=== PATIENT | female | born 1960 | race Caucasian/White ===

== ENCOUNTER 2019-04-21 17:51 | Emergency (ER) | payer BC, OTHER ==
--- NOTE | 2019-04-21 18:01 | PDOC ---
History of Present Illness - General Chief Complaint: Allergic Reaction Stated Complaint: ALLERGIC REACTION Time Seen by Provider: 04/21/19 17:56 History Source: Patient Exam Limitations: No Limitations - History of Present Illness Initial Comments: 04/21/19 17:57 58 year old female with PMH multiple UTIs, multiple antibiotic allergies presented to ED for rash to face since yesterday. Pt reported she started taking Keflex Thursday for a UTI, and she has never taken this medication prior. Pt admitted to tingling sensation in her throat, with facial redness and swelling. Pt denied nausea/vomiting, abdominal pain, chest pain, shortness of breath. Pt reported she took Benadryl 20 mg PO at 0700, but her symptoms have been worsening. Pt reported she started taking Steroids for her chronic back pain x7 days ago, without relief of symptoms. Pt was seen and treated at urgent care 03/21/2019 for similar symptoms, diagnosed with UTI, treated with Macrobid - pt reported her symptoms improved, but she still felt her bladder was not emptying completely and had suprapubic fullness. Pt denied leakage of urine from bladder. Pt reported her symptoms of urinary urgency and frequency have been improving on the Keflex. Past History - Past Medical History Allergies/Adverse Reactions: Allergies Allergy/AdvReac Type Severity Reaction Status Date / Time clindamycin Allergy Severe Swelling,DIFFICULTY Verified 04/21/19 17:52 BREATHING codeine Allergy Severe SEVERE Verified 04/21/19 17:52 ABDOMINAL PAIN ciprofloxacin [From Cipro] Allergy Intermediate Rash Verified 04/21/19 17:52 ciprofloxacin HCl Allergy Intermediate Rash Verified 04/21/19 17:52 [From Cipro] clarithromycin [From Biaxin] Allergy Intermediate Rash Verified 04/21/19 17:52 Penicillins Allergy Intermediate Rash Verified 04/21/19 17:52 Sulfa (Sulfonamide Allergy Intermediate Rash Verified 04/21/19 17:52 Antibiotics) cephalexin [From Keflex] Allergy Verified 04/21/19 17:52 Home Medications: Ambulatory Orders Oxycodone HCl/Acetaminophen [Percocet 10-325 mg Tablet] 1 each PO ASDIR Anemia: Yes (TREATED WITH IRON IN THE PAST) Asthma: No Cancer: No Cardiac Disorders: No CVA: No COPD: No CHF: No Dementia: No Diabetes: No GI Disorders: Yes (IBS) Disorders: No HTN: No Hypercholesterolemia: Yes (BORDERLINE) Liver Disease: No Seizures: No Thyroid Disease: No - Surgical History Abdominal Surgery: Yes (ABDOMINALPLASTY) Appendectomy: Yes (RUPTURED-1974) Cardiac Surgery: No Cholecystectomy: Yes (LAP CHOLEY-2007) Lung Surgery: No Neurologic Surgery: No Orthopedic Surgery: No - Immunization History Td Vaccination: No - Suicide/Smoking/Psychosocial Hx Smoking Status: No Smoking History: Never smoked Number of Cigarettes Smoked Daily: 0 Hx Alcohol Use: Yes (OCCASIONALLY) Drug/Substance Use Hx: No Substance Use Type: Alcohol Hx Substance Use Treatment: No Review of Systems - Review of Systems Able to Perform ROS?: Yes Comments:: 04/21/19 17:59 General: denied fever, chills, generalized weakness. HEENT: admitted to tingling sensation in throat. denied rhinorrhea, ear pain. Heart: denied chest pain, palpitations, syncope, diaphoresis. Respiratory: denied shortness of breath, cough, sputum production, hemoptysis. Abdomen: denied abdominal pain, nausea, vomiting, diarrhea, constipation, blood in stool. : admitted to dysuria, increased urinary frequency. denied hematuria, urinary incontinence. Back: admitted to back pain. Musculoskeletal: denied joint pain, muscle pain, joint swelling. Neurological: denied headache, dizziness, numbness, tingling, weakness. Skin: admitted to rash. denied laceration, abrasion. *Physical Exam - Physical Exam Comments: 04/21/19 18:00 Constitutional: Well-nourished, Well-developed, appearing stated age. HEENT: head is normocephalic, atraumatic. EOMI. PERRLA. erythema to bilateral face. Neck: supple. Full ROM. Heart: regular rhythm. no murmurs, rubs or gallops. Lungs: clear to auscultation bilaterally. no crackles, rhonchi or wheezing. no stridor. Abdomen: soft. tenderness to suprapubic area. normal bowel sounds. no rebound, guarding, masses. Back: no CVA tenderness bilaterally. no rash to back. Extremities: peripheral pulses intact. no lower extremity edema. Neurological: CN 2-12 grossly intact. moves all four extremities. Psych: awake, alert, oriented x3. follows commands. answers questions appropriately. Skin: diffuse erythematous blanching rash to bilateral upper extremities, lateral neck. ED Treatment Course - LABORATORY CBC & Chemistry Diagram: 04/21/19 19:11 04/21/19 19:11 Medical Decision Making - Medical Decision Making 04/21/19 18:00 58 year old female with above PMH presented to ED for rash to face after starting Keflex for UTI. Suspect underlying bladder motility issue may be causing recurrent UTIs. Pt has not had outpatient workup for bladder sensations. Rash consistent with mild allergic reaction without GI or respiratory involvement. Last dose of Benadryl was 0700 today. Initial Vital Signs Temp Pulse Resp BP Pulse Ox 98.2 F 75 16 146/92 98 04/21/19 17:51 04/21/19 17:51 04/21/19 17:51 04/21/19 17:51 04/21/19 17:51 Afebrile. No tachycardia. No tachypnea. Mild hypertension. No hypoxia on room air. Labs ordered: none Imaging ordered: none Medications ordered: benadryl 25 mg IV once, normal saline bolus 1000 cc once, tylenol IV [facility] called at - reported pt last seen on Thursday for UTI, was prescribed Keflex. Will fax sensitivity report. Pt was also seen 03/21 for UTI, prescribed Macrobid. 04/21/19 18:52 Urine culture from 04/17/19 collection date reported sensitivity to Macrobid, Ceftriaxone, Levaquin, Augmentin. 04/21/19 19:30 Pt reported shortness of breath, mild wheezing on auscultation. Medications ordered: duonebx3 04/21/19 19:37 CBC WBC 13.4 K/mm3 (4.0-10.8) H 04/21/19 19:11 RBC 4.50 M/mm3 (3.60-5.2) 04/21/19 19:11 Hgb 14.2 GM/dl (10.7-15.3) 04/21/19 19:11 Hct 40.6 % (32.4-45.2) 04/21/19 19:11 MCV 90.1 fl (80-96) 04/21/19 19:11 MCH 31.5 pg (25.7-33.7) 04/21/19 19:11 MCHC 34.9 g/dl (32.0-36.0) 04/21/19 19:11 RDW 11.6 % (11.6-15.6) 04/21/19 19:11 Plt Count 350 K/MM3 (134-434) 04/21/19 19:11 MPV 8.4 fl (7.5-11.1) 04/21/19 19:11 Absolute Neuts (auto) 11.1 K/mm3 04/21/19 19:11 Neutrophils % No Result Required. 04/21/19 19:11 Lymphocytes % No Result Required. 04/21/19 19:11 Leukocytosis with no left shift. Pt is on steroids. Urine Test Results Urine Color Yellow 04/21/19 19:11 Urine Appearance Clear 04/21/19 19:11 Urine pH 5.5 (4.5-8) 04/21/19 19:11 Urine Protein Negative (NEGATIVE) 04/21/19 19:11 Urine Glucose (UA) Negative (NEGATIVE) 04/21/19 19:11 Urine Ketones Negative (NEGATIVE) 04/21/19 19:11 Urine Blood Negative (NEGATIVE) 04/21/19 19:11 Urine Nitrite Negative (NEGATIVE) 04/21/19 19:11 Urine Bilirubin Negative (NEGATIVE) 04/21/19 19:11 Ur Leukocyte Esterase Negative (NEGATIVE) 04/21/19 19:11 Negative for UTI, but patient has been on antibiotics x4 days. No blood in urine. 04/21/19 19:50 CMP Sodium 138 mmol/L (136-145) 04/21/19 19:11 Potassium 4.6 mmol/L (3.5-5.1) 04/21/19 19:11 Chloride 102 mmol/L (98-107) 04/21/19 19:11 Carbon Dioxide 28 mmol/L (21-32) 04/21/19 19:11 Anion Gap 8 MMOL/L (8-16) 04/21/19 19:11 BUN 24.0 mg/dl (7-18) H 04/21/19 19:11 Creatinine 0.9 mg/dl (0.55-1.3) 04/21/19 19:11 Est GFR (CKD-EPI)AfAm 80.55 04/21/19 19:11 Est GFR (CKD-EPI)NonAf 69.50 04/21/19 19:11 Random Glucose 124 mg/dl (74-106) H 04/21/19 19:11 Calcium 9.8 mg/dl (8.5-10) 04/21/19 19:11 Total Bilirubin 0.8 mg/dl (0.2-1) 04/21/19 19:11 AST 37 U/L (15-37) 04/21/19 19:11 ALT 51 U/L (13-61) 04/21/19 19:11 Alkaline Phosphatase 71 U/L (45-117) 04/21/19 19:11 Total Protein 8.2 g/dl (6.4-8.2) 04/21/19 19:11 Albumin 4.6 g/dl (3.4-5.0) 04/21/19 19:11 No electrolyte abnormalities. No DANNA. BUN/Cr >20 - pt is dehydrated. No transaminitis. 04/21/19 20:52 Pt reported mild itching sensation, reported she would like to go home, but would prefer another dose of benadryl prior to discharge. Medications ordered: benadryl 12.5 mg IV once UTI symptoms improving on Keflex, suspicion for Pyelo low. No CVA tenderness, no fever, no systemic symptoms. Pt has taken 4 days of Keflex with improving symptoms, will discharge with no antibiotic prescription and with instruction to stop Keflex. Pt informed of results and plan for care, with which she agrees. Pt informed of return precautions - including increasing back/flank pain, fever , vomiting. Pt given referral for PCP and Urology. *DC/Admit/Observation/Transfer Diagnosis at time of Disposition: Urinary tract infection, Suprapubic fullness, Back pain - Discharge Dispostion Disposition: HOME Condition at time of disposition: Stable - Referrals Referrals: [facility] [place] [Provider Group] Silvino Hurt MD [Staff Physician] - Jae Roland MD [Staff Physician] - Andre Grover MD [Staff Physician] - - Patient Instructions Printed Discharge Instructions: DI for Urinary Tract Infection (UTI) Additional Instructions: You were seen today for an allergic reaction. Your lab work showed a slightly high white blood cell count, which could be due to the steroids you are taken. Have a primary care doctor repeat this testing. Continue taking the Steroids you were prescribed. STOP taking the Keflex immediately. Take Tylenol over the counter for pain, take as advised on label. Drink lots of fluids to stay hydrated - like water/gatorade. Return to the Emergency Department for fever, chills, vomiting, difficulty breathing, chest pain, shortness of breath, choking sensation, dizziness, lightheadedness or any other new, worsening or concerning symptoms. Follow up with a primary care doctor within 3 days. Your care is not complete until you follow up. I have provided you with a referral. Follow up with a urologist within 5 days. Your care is not complete until you follow up. I have provided you with multiple referrals. - Post Discharge Activity Forms/Work/School Notes: Back to Work
[2019-04-21 18:08] VITALS: BMI 28.1
[2019-04-21 18:39] VITALS: BP 146/92; PULSE 75; TEMP 98.2
[2019-04-21] MEDS ORDERED: SODIUM CHLORIDE 1,000 ML IV STA (18:50)
[2019-04-21] MEDS ORDERED: ACETAMINOPHEN 1000 MG/100 ML VIAL (NON FORMULARY) IVPB ONE (18:50)
[2019-04-21] MEDS ORDERED: ALBUTEROL SO4 2.5/IPRATROPIUM 0.5 INH SOL 3 ML VIAL.NEB. NEB ONE ×2 (19:19→19:20)
[2019-04-21 19:28] LABS: HEMATOCRIT 40.6 % (32.4-45.2); HEMOGLOBIN 14.2 GM/dl (10.7-15.3); MCH 31.5 pg (25.7-33.7); MCHC 34.9 g/dl (32.0-36.0); MEAN CELL VOLUME 90.1 fl (80-96); MEAN PLT VOLUME 8.4 fl (7.5-11.1); PLATELET COUNT 350 K/MM3 (134-434); RDW 11.6 % (11.6-15.6); WHITE BLOOD COUNT 13.4 K/mm3 (4.0-10.8)
[2019-04-21 19:42] LABS: ALBUMIN 4.6 g/dl (3.4-5.0); BILIRUBIN,TOTAL 0.8 mg/dl (0.2-1); CALCIUM 9.8 mg/dl (8.5-10); CREATININE 0.9 mg/dl (0.55-1.3); POTASSIUM 4.6 mmol/L (3.5-5.1); TOT PROT 8.2 g/dl (6.4-8.2)
--- NOTE | 2019-04-21 19:48 | PDOC ---
Documentation entered by Leslie Rodriguez SCRIBE, acting as scribe for Bang Judd MD. Bang Judd MD: This documentation has been prepared by the Michael goldstein Adrianna, SCRIBE, under my direction and personally reviewed by me in its entirety. I confirm that the documentation accurately reflects all work, treatment, procedures, and medical decision making performed by me. Attending Attestation - Resident Resident Name: JustaJennifer - ED Attending Attestation I have performed the following: I have examined & evaluated the patient, The case was reviewed & discussed with the resident, I agree w/resident's findings & plan, Exceptions are as noted - HPI HPI: The patient is a 58 year old female, with a significant PMH of recurrent UTIs, chronic back pain, anemia, IBS, and HLD, who presents to the ED for evaluation of rash for two days. Patient notes she was seen in a UC 4 days ago, where she was diagnosed with a UTI and was placed on Keflex. Patient has never been on this medication in the past, and has multiple antibiotic allergies. She began feeling a tingling sensation in the back of her throat after the second dose of Keflex, but began taking Benadryl. Patient developed a red rash on her face 2 days ago, with associated facial swelling and chills. She reports the Benadryl has no longer provided any relief of symptoms, and her symptoms have been progressively worsening. Patient does note that the Keflex has helped with her UTI symptoms. Patient additionally endorses upper back pain that developed one week ago. 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 Denies fever, nausea, vomit, chest pain, SOB. Allergies: Clindamycin, codeine, ciprofloxacin, ciprofloxacin HCl, clarithromycin, penicillin, sulfa, cephalexin Surgical History: Abdimonoplasty, appendectomy, lap choley Social History: Social EtOH use. Denies tobacco, or illicit drug use PCP: Does not have one - Physicial Exam PE: 04/21/19 19:29 GENERAL: The patient is awake, alert, and fully oriented, Nontoxic - in no acute distress. HEAD: Normocephalic, atraumatic. EYES: extraocular movements intact, sclera anicteric, conjunctiva clear. ENT: Normal voice, Moist mucous membranes. Posterior pharynx patent and symmetric without swelling, NECK: Normal range of motion, supple, No stridor, LUNGS: Breath sounds equal, clear to auscultation bilaterally. No wheezes, no rhonchi, no rales. HEART: Regular rate and rhythm, normal S1 and S2 without murmur, rub or gallop. ABDOMEN: Soft, nontender, No guarding, no rebound. No CVA tenderness EXTREMITIES: Normal range of motion, no edema. NEUROLOGICAL: No facial assymetry, Normal speech, PSYCH: Normal mood, normal affect. SKIN: Warm, Dry, normal turgor, mild erythema over malar region and over R shoulder - Medical Decision Making 04/21/19 19:44 suspect pts sypmtoms may be related to her keflex pt has taken 4.5 days of her keflex with improvement of her uti sypmtoms. as pt is afebrile, has no cva tenderness and pain is atypically bilateral - i do not think her symptoms are due to pyelonephritis. her back pain is more likely her chronic back pain (same distribution/quality). as she is clnically improving, rathe than expose her to another course of antibiotics and risk her developing other allergic sypmtms, will dc her keflex and treat her rash with her prednisone/benadryl wll observe here for an hr to see if she is improved she has no signs to suggest angioedema as her airway is widely patent and w/o stridor. only manifestation is her rash. lauren alvarez with urology for her recurrent UTIs signed out evening team and dr. pereyra to reasess the pt 04/21/19 19:48 pts labs reviewed slight wbc elevation at 13 - suspect this is due to her being on steroids. cmp and UA neg
[2019-04-21 20:50] LABS: PLATELET ESTIMATE ADEQUATE
== END 2019-04-21 20:58 | disposition home or self-care (01) ==
LOC: FER 17:51
PROC: 3E033GC Introduction of Other Therapeutic Substance into Peripheral Vein, Percutaneous Approach (ICD-10-PCS; principal; 2019-04-21)
PROC: 3E0F7GC Introduction of Other Therapeutic Substance into Respiratory Tract, Via Natural or Artificial Opening (ICD-10-PCS; 2019-04-21)
DX: N39.0 Urinary tract infection, site not specified (principal); R10.30 Lower abdominal pain, unspecified; M54.5 Low back pain; G89.29 Other chronic pain; E78.5 Hyperlipidemia, unspecified; K58.9 Irritable bowel syndrome, unspecified; Z87.440 Personal history of urinary (tract) infections; Z88.0 Allergy status to penicillin; Z88.1 Allergy status to other antibiotic agents; Z88.2 Allergy status to sulfonamides
CPT/HCPCS: 36415; 80053; 81003; 85025; 87086; 99283-25; J7030